=== PATIENT | male | born 1990 | race Caucasian/White ===

== ENCOUNTER 2022-05-05 18:23 | Emergency (ER) | payer BC, OTHER ==
[2022-05-05] MEDS ORDERED: HYDROmorphone 1 MG/ML Syringe IM ONE (19:26)
[2022-05-05] MEDS ORDERED: Cephalexin 500 MG Cap PO ONE (19:40)
== END 2022-05-05 20:23 | disposition home or self-care (01) ==
LOC: JD.ED 18:23
DX: S82.201D Unspecified fracture of shaft of right tibia, subsequent encounter for closed fracture with routine healing (principal); S82.401D Unspecified fracture of shaft of right fibula, subsequent encounter for closed fracture with routine healing; F17.210 Nicotine dependence, cigarettes, uncomplicated; Z86.16 Personal history of COVID-19; W22.09XD Striking against other stationary object, subsequent encounter
CPT/HCPCS: 96372; 99283; A9270; J1170; 99282